=== PATIENT | male | born 1980 | race Caucasian/White ===

== ENCOUNTER 2016-11-08 16:36 | Emergency (ER) | payer SELFPAY ==
[2016-11-08 17:27] VITALS: BP 112/78; PULSE 118; TEMP 97.4; BMI 2831.5
--- NOTE | 2016-11-08 17:32 | EDPRACDOC ---
- General Information Stated Complaint: RT LEG PAIN Time Seen by Provider: 11/08/16 17:23 Information Source: Patient Home Medications: Home Medications Esomeprazole Magnesium [Nexium] 20 mg PO DAILY 03/03/15 Albuterol Sulfate MDI [Proventil HFA] 0 puff INH Q4-6H PRN #1 inhaler 11/03/16 Albuterol Sulfate Nebs [Proventil, Ventolin] 3 ml NEB Q4-6H PRN #1 box 11/03/16 Ketoprofen 50 mg PO BID PRN #20 capsule 11/03/16 Prednisone [Deltasone, Orasone] 40 mg PO DAILY 5 Days 11/03/16 Diazepam [Valium] 5 mg PO TID #15 tablet 11/06/16 Hydrocodone Bit/Acetaminophen [[place] 5-325 Tablet] 1 each PO Q6H PRN #10 tab Cyclobenzaprine HCl [Flexeril] 10 mg PO TID PRN #15 tablet 11/08/16 Oxycodone Immediate Release [Oxycodone Immediate Release (OxyIR)] 5 mg PO Q6H PRN #15 tab 11/08/16 Prednisone [Deltasone, Orasone] 20 mg PO DAILY #20 tab 11/08/16 Allergies/Adverse Reactions: Allergies Allergy/AdvReac Type Severity Reaction Status Date / Time Penicillins Allergy Unknown Verified 11/06/16 18:21 tramadol Allergy Rash-Genera Verified 11/06/16 18:21 lized - History of Present Illness Onset: week HPI: Pt states lower back pain radiating to R thigh and knee with numbness in toes x 1 week after falling onto coccyx. Pt states pain has been progressively worse. Denies abd pain, n/v, loss of control bowel or bladder. Pt states he cant walk on leg and is using crutches to get around. Pain Location: Reports: Left, Lumbar Pain Radiates To: Reports: Thigh, Buttock, Calf, Foot Pain Caused By: Reports: Spontaneous Circumstances: Reports: Fall Pain Severity: Reports: Moderate Pain Quality: Reports: Aching, Sharp, Stabbing Worsened By: Reports: Movement, Walking Associated Signs and Symptoms: Reports: None ED Past Medical History - History Reviewed Yes Nurses notes reviewed and agree except as marked - Patient Medical History Respiratory History: Reports: Asthma GI/ History: Reports: Gastroesophageal Reflux Psychological History: Denies: Depression Surgical History: Reports: Tonsillectomy/Adnoidectomy - Social Medical History Smoking Status: Former smoker ETOH: None Substance Abuse: None EDM Review of Systems - Review of Systems Constitutional: No Symptoms Reported. negative: Fever, Chills, Weakness, Fatigue, Loss of Appetite Respiratory: No Symptoms Reported. negative: Cough, Brassy Cough, Barky Cough, Shortness of Breath, Wheezing, Hemoptysis Cardiovascular: No Symptoms Reported. negative: Chest Pain, Palpitations, Syncope, Edema, Orthopnea, PND, Skin Mottling, Cyanosis Gastrointestinal: No Symptoms Reported. negative: Pain, Constipation, Nausea, Vomiting, Diarrhea, Melena, Formula Intolerance Genitourinary: No Symptoms Reported. negative: Dysuria, Hematuria, Frequency, Discharge, Bleeding, Testicular Pain, Neurological: Numbness Musculoskeletal: Back, Femur, Foot, Hip, Knee, Leg Integumentary: No Symptoms Reported. negative: Itching, Rash, Bruising, Wound Allergic/Immunologic: No Symptoms Reported. negative: Hives, Itching Hematologic: No Symptoms Reported. negative: Lymphadenopathy, Easy Bruising, Easy Bleeding Psychiatric: No Symptoms Reported. negative: Anxiety, Depression, Hallucinations, Insomnia, Suicidal - Physical Exam Constitutional: Alert Oriented to: Time, Person, Place Last recorded Vital Signs: Last Vital Signs Temp 97.4 F L 11/08/16 17:25 Pulse 118 11/08/16 17:25 Resp 20 11/08/16 17:25 BP 112/78 11/08/16 17:25 Pulse Ox 94 11/08/16 17:25 Oxygen Pulse Oxygen Saturation 94 O2 Device Room Air Oxygen Flow Rate Fraction of Inspired Oxygen ( FIO2) - HEENT Head: Normal ( normocephalic) Eye Exam: Normal (PERRL, EOMI, Sclera white) Neck: Normal (FROM, trachea at midline) - Respiratory/Cardiovascular Respiratory: Normal - CTA (BBS clear to auscultation without adventitious sounds ) Cardiovascular: Normal (RRR without murmur, gallop or rub) - GI Auscultation: Normal (NABS) Palpation: Normal (Soft,No rebound or guarding, non distended) Tenderness: Non tender - Musculoskeletal Back: Normal (Non-Tender) Extremities: Normal (Normal tone, Pulses 2+ No cyanosis or edema, FROM) - Integumentary Skin: Normal, Warm, Dry Lymphatics: Normal (no adenopathy) - Neurologic Memory Impaired: Normal Motor Function: Normal (Normal tone, Pulses 2+ No cyanosis or edema, FROM) Mood Description: Normal Perception: Normal ED Back Exam - Neurologic Motor Deficit: None (strength 5/5, sensation nl) Reflexes: Normal (CN II-X11 intact) - Musculoskeletal Cervical: Normal Thoracic: Normal Lumbar: Normal Midline: Normal Paraspinous: Normal Straight Leg Raise: Positive (R) Pelvis: Normal - Differential Diagnosis DJD, HNP, Musculoskeletal pain, Other (lumbar radiculopathy) Decision Time to Discharge: 17:30 - Departure Disposition: Home Condition: Good Final Diagnosis: Lumbar radiculopathy, acute Instructions: Lumbar Radiculopathy (ED) Education/Counseling Given To: Patient Education/Counseling Given Regarding: Diagnosis, Treatment, Follow Up Referrals: None,No Provider [Primary Care Provider] - One Week Je Corrales DO [Staff Physician] - One Week Balta Thomas II, MD [Staff Physician] - One Week Prescriptions: Cyclobenzaprine HCl [Flexeril] 10 mg PO TID PRN #15 tablet PRN Reason: Pain Oxycodone Immediate Release [Oxycodone Immediate Release (OxyIR)] 5 mg PO Q6H PRN #15 tab PRN Reason: Pain Prednisone [Deltasone, Orasone] 20 mg PO DAILY #20 tab Additional Instructions: Follow up with PCP or orthopedist for further evaluation of pain.
== END 2016-11-08 17:48 | disposition home or self-care (01) ==
LOC: EDMC 16:36
DX: M54.16 Radiculopathy, lumbar region (principal)
CPT/HCPCS: 99283

== ENCOUNTER 2016-11-09 03:05 | Emergency (ER) | payer SELFPAY ==
[2016-11-09 03:21] VITALS: TEMP 98.1; BMI 19.6
[2016-11-09] MEDS ORDERED: OXYCODONE HCL 5 MG TABLET PO ONE (08:04)
--- NOTE | 2016-11-09 09:09 | DIRPT ---
CLINICAL DATA: Several recent falls. Pelvic pain. EXAM: CT PELVIS WITHOUT CONTRAST TECHNIQUE: Multidetector CT imaging of the pelvis was performed following the standard protocol without intravenous contrast. COMPARISON: Pelvic and sacral radiographs from 11/06/2016. FINDINGS: No pelvic fracture is evident. No sidewall hematoma. No free fluid. No significant soft tissue injury. Acutely angled sacrococcygeal junction but no features suggestive of coccygeal dislocation or separation. IMPRESSION: Negative. Electronically Signed By: Balta Lauren M.D. On: 11/09/2016 09:06
--- NOTE | 2016-11-09 09:51 | EDPRACDOC ---
- General Chief Complaint: Hip Pain Stated Complaint: RT HIP/LEG PAIN Time Seen by Provider: 11/09/16 07:59 Information Source: Patient - History of Present Illness Onset: [employer]OR HPI: PATIENT HAS SQUATTED DOWN ON AN ARMREST OF A CHAIR APPROXIMATELY 1 WEEK AGO STRIKING HIS TAILBONE. HE HAS HAD PAIN SINCE THAT TIME. PAIN RADIATES TO HIS RIGHT HIP PAIN IS AGGRAVATED BY MOVEMENT OF THE HIP AND WALKING. THE PAIN IS PROGRESSIVELY GOTTEN WORSE SINCE THAT TIME. IT IS AGGRAVATED ALSO BY LYING ON IT. NO BOWEL BLADDER INCONTINENCE OR RETENTION, NO SADDLE ANESTHESIA. THIS IS HIS 4TH OR 5TH ED VISIT FOR THE SAME. NO FEVER CHILLS, NO HISTORY OF CANCER, NO ALLEGED IV DRUG ABUSE. Allergies/Adverse Reactions: Allergies Penicillins Allergy (Verified 11/09/16 03:22) Unknown tramadol Allergy (Verified 11/09/16 03:22) Rash-Generalized Home Medications: Ambulatory Orders Albuterol Sulfate MDI [Proventil HFA] 0 puff INH Q4-6H PRN #1 inhaler 11/03/16 Albuterol Sulfate Nebs [Proventil, Ventolin] 3 ml NEB Q4-6H PRN #1 box 11/03/16 Diazepam [Valium] 5 mg PO TID #15 tablet 11/06/16 Cyclobenzaprine HCl [Flexeril] 10 mg PO TID PRN #15 tablet 11/08/16 Oxycodone Immediate Release [Oxycodone Immediate Release (OxyIR)] 5 mg PO Q6H PRN #15 tab 11/08/16 Prednisone [Deltasone, Orasone] 20 mg PO DAILY #20 tab 11/08/16 Prednisone [Deltasone, Orasone] 20 mg PO DAILY #12 tab 11/09/16 ED Past Medical History - History Reviewed Yes Nurses notes reviewed and agree except as marked - Patient Medical History Respiratory History: Reports: Asthma GI/ History: Reports: Gastroesophageal Reflux Psychological History: Denies: Depression Surgical History: Reports: Tonsillectomy/Adnoidectomy - Social Medical History Smoking Status: Heavy tobacco smoker (5 or more cigarettes/day or daily pipe/ cigar) EDM Review of Systems - Review of Systems ROS Negative Except as Marked: Yes All systems reviewed and were negative except as marked - Physical Exam Constitutional: No apparent distress, Alert Oriented to: Time, Person, Place Last recorded Vital Signs: Last Vital Signs Temp 98.1 F 11/09/16 03:17 Pulse 99 11/09/16 08:59 Resp 20 11/09/16 08:59 BP 116/59 L 11/09/16 08:59 Pulse Ox 98 11/09/16 08:59 Oxygen Pulse Oxygen Saturation 98 O2 Device Room Air Oxygen Flow Rate Fraction of Inspired Oxygen ( FIO2) - HEENT Head: Normal Eye Exam: negative: Scleral Icterus Oropharynx: Normal. negative: Membranes Dry Nose: No Symptoms Reported Neck: Normal - Respiratory/Cardiovascular Respiratory: Normal - CTA Cardiovascular: Normal - GI Auscultation: Normal Palpation: Normal Tenderness: Non tender - Bladder: Normal - Musculoskeletal Back: Normal, Other (RIGHT SI JOINT TENDERNESS PALPATION. COCCYX IS NORMAL.). negative: Lumbar Step-off, Thoracic TTP, Lumbar TTP Extremities: Normal - Integumentary Skin: Normal - Neurologic Memory Impaired: Normal Motor Function: Normal, Other (BILATERAL HIP FLEXION-EXTENSION, QUADRICEPS EXTENSION HAMSTRING FLEXION, FOOT DORSIFLEXION AND PLANTAR FLEXION ARE 5+ BILATERALLY. SENSATION NORMAL OVER THE A1 S1 NERVE DISTRIBUTION. DORSALIS PEDIS AND POSTERIOR TIBIALIS PULSES 2+.) - Additional Information PAIN OUT OF PROPORTION TO EXAM WITH TRIVIAL TRAUMA. NO NEUROLOGICAL DEFICITS ON EXAM OR PER HISTORY. NO INDICATION OF INFECTION OR IV DRUG ABUSE. CURRENTLY PAIN IS OF UNCLEAR ETIOLOGY. NCCSR: PT ON ZUSOLV (OPOID DEPENDENCY) BUT PT JUST SEEING ONE PROVIDER FOR THIS - PT NEGLECTED TO INFORM ED OF THIS. - Departure Condition: Stable Final Diagnosis: Low back pain Qualifiers: Chronicity: acute Back pain laterality: unspecified Sciatica presence: without sciatica Qualified Code(s): M54.5 - Low back pain Instructions: Core Strengthening Exercises (GEN), Back Pain Education/Counseling Given To: Patient Education/Counseling Given Regarding: Diagnosis, Treatment, Prognosis Referrals: None,No Provider [Primary Care Provider] - One Week Prescriptions: Prednisone [Deltasone, Orasone] 20 mg PO DAILY #12 tab
[2016-11-09 10:22] VITALS: BP 107/63; PULSE 98
== END 2016-11-09 10:12 | disposition home or self-care (01) ==
LOC: ED 03:05
DX: M54.5 Low back pain (principal); R10.2 Pelvic and perineal pain
CPT/HCPCS: 72192; 99284; J3490